=== PATIENT | female | born 1955 | race African-American/Black ===

== ENCOUNTER 2016-07-09 14:00 | Emergency (ER) | payer OTHER ==
[~2016-07-09] VITALS: Ht 157.5 cm; Wt 111.9 kg
[~2016-07-09 14:00] MED LIST: BENTYL10 MG PO; Coumadin dosing per PO; Dilaudid PO; ELIDEL 1% CREAM30 GM TP; FEOSOL325 MG PO; FLONASE16 G1 BOTH NARES; FLOVENT 11120 INHALA IH; Feosol PO; Flonase BOTH NARES; Flovent 110 mcg IH; HYDROCORTISONE30 G3 TP; Keflex PO; LEVAQUIN750 MG PO; MIRALAX17 GM PO; MOTRIN800 MG PO; NAPROSYN125 MG/5 M PO; NAPROSYN500 MG PO; NASONEX17 GM NS; NORCO 5/3251 TABLET PO; PERCOCET 5/31 TABLET; PREDNISONE50 MG PO; PRILOSEC40 MG PO; PROVENTIL HFA6.7 GM PO; PriLOSEC PO; Proventil,Ventolin H IH; SENOKOT S,PE1 TABLET PO; Tears Naturale II,Ar BOTH EYES; Tylenol Regular Stre PO; ULTRAM50 MG PO; ZYRTEC10 M2 PO; ZyrTEC PO
[2016-07-09 16:14] LABS: ADD MIUA? YES; BILIRUBIN NEGATIVE; BLOOD NEGATIVE; COLOR YELLOW ((YELLOW)); GLUCOSE (STRIP) NEGATIVE; KETONES NEGATIVE; LEUKOCYTES TRACE; NITRITE NEGATIVE; PROTEIN (STRIP) 30; SPECIFIC GRAVITY 1.026 (1.000-1.030); UROBILINOGEN 0.2 MG/DL (0.2-1.0)
[2016-07-09] MEDS ORDERED: VALIUM5 MG PO (16:18)
[2016-07-09 16:19] LABS: BACTERIA RARE /HPF; EPITHELIAL CELLS 1+ /HPF; MUCUS TRACE /LPF; RED BLOOD CELLS 0-5 /HPF (0-5); UCUL ADDED? NO; WHITE BLOOD CELLS 0-5 /HPF (0-5)
[2016-07-09] MEDS ORDERED: NORCO 5/3251 TABLET PO (16:24)
[2016-07-09 16:43] VITALS: BP 144/76
== END 2016-07-09 16:44 | disposition home or self-care (01) ==
LOC: EME 14:00
PROVIDERS: Emergency Medicine
DX: M54.41 Lumbago with sciatica, right side (principal); Z98.1 Arthrodesis status
CPT/HCPCS: 81003; 99281; 99283; J2270

== ENCOUNTER → 2016-09-23 | Outpatient (CLI) | payer OTHER ==
[~2016-09-23] VITALS: Ht 157.5 cm; Wt 108.4 kg
[~2016-09-23] MED LIST changes: +ASTEPRO 0.15%30 ML BOTH NARES; +DILAUDID4 MG PO; +FLEXERIL5 MG PO; +MIRALAX255 GM PO; +VALIUM5 MG PO; +VITAMIN B122500 MCG PO
== END | disposition home or self-care (01) ==
LOC: AMB 08:00
DX: Z12.11 Encounter for screening for malignant neoplasm of colon (principal); D12.5 Benign neoplasm of sigmoid colon; K63.5 Polyp of colon; K64.8 Other hemorrhoids; J44.9 Chronic obstructive pulmonary disease, unspecified; J45.909 Unspecified asthma, uncomplicated; F41.9 Anxiety disorder, unspecified; F17.210 Nicotine dependence, cigarettes, uncomplicated; K21.9 Gastro-esophageal reflux disease without esophagitis
CPT/HCPCS: 88305; J2250

== ENCOUNTER 2016-10-14 07:58 | Emergency (ER) | payer OTHER ==
[~2016-10-14] VITALS: Ht 157.5 cm; Wt 105.7 kg
[2016-10-14 09:52] LABS: HEMATOCRIT 47.5 % (36.0-46.0); MCH 29.3 PG (29.0-34.0); MCHC 32.4 G/DL (30.0-36.0); MCV 90.5 FL (83-99); RBC DIS.WIDTH-CV 13.2 % (11.8-14.6); RED BLOOD COUNT 5.25 M/uL (3.80-5.20); WHITE BLOOD COUNT 11.5 K/uL (4.1-10.2)
[2016-10-14 09:57] LABS: CHLORIDE 107 mEq/L (99-109); POTASSIUM 4.9 mEq/L (3.7-5.4); SODIUM 138 mEq/L (136-147)
[2016-10-14 09:59] LABS: GLUCOSE 98 mg/dL (70-99)
[2016-10-14 10:00] LABS: ANION GAP 8 MEQ/L (2-14)
[2016-10-14 10:01] LABS: TOTAL BILIRUBIN 0.4 mg/dL (0.0-1.0)
[2016-10-14 10:02] LABS: ALKALINE PHOSPHATASE 72 IU/L (3-129)
[2016-10-14 10:03] LABS: GFR ESTIMATE (CALCULATED) > 59 mL/min/
[2016-10-14 10:04] LABS: UREA NITROGEN (BUN) 17 mg/dL (9-23)
[2016-10-14 10:18] LABS: ADD MIUA? NO; BILIRUBIN NEGATIVE; BLOOD NEGATIVE; COLOR YELLOW ((YELLOW)); GLUCOSE (STRIP) NEGATIVE; KETONES NEGATIVE; LEUKOCYTES NEGATIVE; NITRITE NEGATIVE; PROTEIN (STRIP) NEGATIVE; SPECIFIC GRAVITY 1.019 (1.000-1.030); UCUL ADDED? NO; UROBILINOGEN 0.2 MG/DL (0.2-1.0)
[2016-10-14] MEDS ORDERED: CITRATE OF MAG296 ML PO (11:04)
[2016-10-14 11:22] VITALS: BP 158/79
[2016-10-14 11:52] LABS: MEAN PLAT.VOLUME 9.7 uM^3 (9.5-12.4); PLATELET COUNT 173 K/uL (156-360)
[2016-10-14 11:58] LABS: PLAT.SUFFICIENCY ADEQUATE
== END 2016-10-14 11:23 | disposition home or self-care (01) ==
LOC: EME 07:58
DX: R10.30 Lower abdominal pain, unspecified (principal); J45.909 Unspecified asthma, uncomplicated; Z91.040 Latex allergy status; Z88.6 Allergy status to analgesic agent; Z96.651 Presence of right artificial knee joint
CPT/HCPCS: 74020; 80053; 81003; 85027; 99281; 99284

== ENCOUNTER → 2017-02-02 | Outpatient (CLI) | payer OTHER ==
[~2017-02-02] MED LIST changes: +CITRATE OF MAG296 ML PO
== END | disposition home or self-care (01) ==
LOC: RAD 10:00
DX: R07.1 Chest pain on breathing (principal); R06.09 Other forms of dyspnea
CPT/HCPCS: 71275

== ENCOUNTER → 2017-03-07 | Outpatient (CLI) | payer OTHER | END | disposition home or self-care (01) | LOC: RAD 12:03 | DX: Z98.1 Arthrodesis status (principal); M54.5 Low back pain; M54.6 Pain in thoracic spine | CPT/HCPCS: 72070; 72110 ==

== ENCOUNTER 2017-09-03 18:35 | Emergency (ER) | payer OTHER ==
[~2017-09-03] VITALS: Ht 157.5 cm; Wt 109.7 kg
[2017-09-03] MEDS ORDERED: NORCO 10/3251 TABLET PO (20:43)
[2017-09-03 22:13] VITALS: BP 160/70
== END 2017-09-03 22:15 | disposition home or self-care (01) ==
LOC: EME 18:35
PROC: 2W3CX1Z Immobilization of Right Lower Arm using Splint (ICD-10-PCS; principal; 2017-09-03)
DX: S52.501A Unspecified fracture of the lower end of right radius, initial encounter for closed fracture (principal); W18.30XA Fall on same level, unspecified, initial encounter; Y93.68 Activity, volleyball (beach) (court); F17.210 Nicotine dependence, cigarettes, uncomplicated; Z91.040 Latex allergy status; Z88.6 Allergy status to analgesic agent; Z88.7 Allergy status to serum and vaccine; Z88.5 Allergy status to narcotic agent; Z88.8 Allergy status to other drugs, medicaments and biological substances
CPT/HCPCS: 73090; 99281; 99285; J3010

== ENCOUNTER 2017-09-08 09:09 | Emergency (ER) | payer OTHER ==
[~2017-09-08] VITALS: Ht 157.5 cm; Wt 110.4 kg
[~2017-09-08 09:09] MED LIST changes: +NORCO 10/3251 TABLET PO
[2017-09-08] MEDS ORDERED: NORCO 5/3251 TABLET PO (10:52)
[2017-09-08 11:17] VITALS: BP 162/61
== END 2017-09-08 11:19 | disposition home or self-care (01) ==
LOC: EME 09:09 → EXP 09:09
DX: S82.832A Other fracture of upper and lower end of left fibula, initial encounter for closed fracture (principal); M77.32 Calcaneal spur, left foot; W01.0XXA Fall on same level from slipping, tripping and stumbling without subsequent striking against object, initial encounter
CPT/HCPCS: 73610; 99281; 99283